=== PATIENT | female | born 1985 | race Two or more races ===

== ENCOUNTER 2024-03-20 08:07 | Emergency (ER) | payer BC ==
[~2024-03-20] VITALS: Ht 167.6 cm; Wt 103.6 kg
[2024-03-20 08:13] VITALS: TEMP 98.6
[2024-03-20] MEDS: MethylPREDNISolone SOD SUCC 125 MG/2 ML VIAL IVP ONE (08:44)
[2024-03-20] MEDS: DiphenhydrAMINE HCL 50 MG/ML VIAL IVP ONE (08:44)
[2024-03-20] MEDS ORDERED: EPIN0.3P3 IM (09:07)
[2024-03-20] MEDS ORDERED: PRED-554 PO (09:07)
[2024-03-20 09:27] VITALS: BP 110/64; PULSE 105; RESP 16
[2024-03-20] MEDS ORDERED: ONDA-104 PO (09:33)
== END 2024-03-20 10:01 | disposition home or self-care (01) ==
LOC: EMS 08:07
DX: L50.0 Allergic urticaria (principal); Z91.010 Allergy to peanuts; Z91.018 Allergy to other foods; Z88.8 Allergy status to other drugs, medicaments and biological substances
CPT/HCPCS: 99284; 96374; 96375; J1200; J2919